=== PATIENT | female | born 1965 | race Caucasian/White ===

== ENCOUNTER → 2017-09-09 | Outpatient (CLI) | payer OTHER | END | disposition home or self-care (01) | LOC: LAB 18:03 | DX: R22.9 Localized swelling, mass and lump, unspecified (principal) | CPT/HCPCS: 87070; 87075; 87077; 87147; 87186; 87205 ==

== ENCOUNTER 2024-05-21 17:11 | Inpatient (IN) | payer OTHER ==
[~2024-05-21] VITALS: Ht 154.9 cm; Wt 68.0 kg
[2024-05-21] MEDS ORDERED: ADTHYZA PO (17:48)
[2024-05-21] MEDS ORDERED: MAGNESIUM OXID500 MG PO (17:49)
[2024-05-21 17:52] LABS: Source, Urine Clean Catch
[2024-05-21 17:59] LABS: Appearance, Urine Clear (Clear); BASOPHILS ABSOLUTE AUTO 0.06 K/mm3 (0.00-0.23); BASOPHILS PERCENT AUTO 1 % (0-2); Bilirubin, Urine Neg (Neg); Blood, Urine 2+ (Neg); Color, Urine Yellow (P-Yellow); EOSINOPHILS ABSOLUTE AUTO 0.05 K/mm3 (0.00-0.68); EOSINOPHILS PERCENT AUTO 0 % (0-6); Glucose Qualitative, Urine Neg (Neg); Hematocrit 39.2 % (33.0-51.0); Hemoglobin 12.9 g/dL (11.5-16.0); IMMATURE GRAN ABSOLUTE AUTO 0.08 K/mm3 (0.00-0.10); IMMATURE GRAN PERCENT AUTO 1 % (0-1); Ketones, Urine Neg (Neg); LYMPHOCYTES PERCENT AUTO 21 % (21-46); Leukocyte Esterase, Urine 3+ (Neg); MONOCYTES ABSOLUTE AUTO 1.02 K/mm3 (0.16-1.47); MONOCYTES PERCENT AUTO 9 % (4-13); Mean Corpuscular HGB 28.9 pg (26.0-34.0); Mean Corpuscular HGB Conc 32.9 g/dL (31.5-36.5); Mean Corpuscular Volume 88 fL (80-100); Mean Platelet Volume 9.8 fL (9.1-12.4); NEUTROPHILS ABSOLUTE AUTO 7.73 K/mm3 (1.96-9.15); NEUTROPHILS PERCENT AUTO 69 % (41-73); Nitrite, Urine Neg (Neg); Platelet Count 281 K/mm3 (150-400); Protein, Urine Neg (Neg); RDW Coefficient Variation 12.8 % (11.7-14.2); RDW Standard Deviation 40.8 fL (35.1-46.3); Red Blood Cell Count 4.47 M/mm3 (3.80-5.20); Urobilinogen, Urine NORM (Normal); White Blood Cell Count 11.24 K/mm3 (4.00-11.30)
[2024-05-21] MEDS ORDERED: NS 1,000 ML IV SCH ×2 (18:10→23:00)
[2024-05-21] MEDS ORDERED: Piperacillin/Tazobactam Sod 4.5 GM in NS 100 ML IV ONE ×2 (18:10→19:35)
[2024-05-21 18:21] LABS: Bacteria Many /hpf; Squamous Epithelial Cells Few /hpf (Few)
[2024-05-21 18:30] LABS: Albumin, Blood 3.3 g/dL (3.4-5.0); Albumin/Globulin Ratio 0.6 (0.8-1.8); Bilirubin, Total 0.3 mg/dL (0.1-1.0); Bun/Creatinine Ratio 17.6 (12.0-20.0); Calcium, Blood 9.2 mg/dL (8.5-10.1); Creatinine, Blood 0.8 mg/dL (0.40-1.00); Globulin, Blood 5.1 g/dL (2.2-4.0); Potassium, Blood 3.7 mmol/L (3.5-5.5); Thyroid Stimulating Hormone 2.32 uIU/mL (0.360-4.800); Total Protein, Blood 8.4 g/dL (6.4-8.2)
[2024-05-21] MEDS ORDERED: Naloxone HCl 0.4MG / ML 1ML Vial IV PRN (19:25)
[2024-05-21] MEDS ORDERED: OxyCODONE HCL 5 MG TAB PO PRN (19:30)
[2024-05-21] MEDS ORDERED: FLU VACC TS2024-25(6MOS UP)/PF 45 MCG/0.5 ML SYRINGE IM ONE (19:30)
[2024-05-21] MEDS ORDERED: Acetaminophen 325 MG TABLET PO PRN (19:30)
[2024-05-21] MEDS ORDERED: Ondansetron HCl 2 MG / ML 2ML Vial IV PRN (19:30)
[2024-05-21] MEDS ORDERED: FentaNYL Citrate 50 MCG/ML 2 ML Injection IV PRN (19:30)
[2024-05-21] MEDS ORDERED: Lactated Ringer's 1,000 ML IV SCH (20:00)
[2024-05-21] MEDS ORDERED: Lactobacil 2-S.Thermo-Bifido 1 1 Cap PO SCH (21:00)
[2024-05-21] MEDS ORDERED: Docusate Sodium 100 MG Cap PO SCH (21:00)
[2024-05-22] VITALS (22 sets, daily range): BP systolic 94–186; BP diastolic 54–97
[2024-05-22] MEDS ORDERED: Piperacillin/Tazobactam Sod 4.5 GM in NS 100 ML IV SCH
[2024-05-22 04:52] LABS: BASOPHILS ABSOLUTE AUTO 0.04 K/mm3 (0.00-0.23); BASOPHILS PERCENT AUTO 0 % (0-2); EOSINOPHILS ABSOLUTE AUTO 0.07 K/mm3 (0.00-0.68); EOSINOPHILS PERCENT AUTO 1 % (0-6); Hematocrit 34.6 % (33.0-51.0); Hemoglobin 11.5 g/dL (11.5-16.0); IMMATURE GRAN ABSOLUTE AUTO 0.05 K/mm3 (0.00-0.10); IMMATURE GRAN PERCENT AUTO 1 % (0-1); LYMPHOCYTES ABSOLUTE AUTO 2.11 K/mm3 (0.84-5.20); LYMPHOCYTES PERCENT AUTO 22 % (21-46); MONOCYTES ABSOLUTE AUTO 0.92 K/mm3 (0.16-1.47); MONOCYTES PERCENT AUTO 10 % (4-13); Mean Corpuscular HGB 28.8 pg (26.0-34.0); Mean Corpuscular HGB Conc 33.2 g/dL (31.5-36.5); Mean Corpuscular Volume 87 fL (80-100); NEUTROPHILS ABSOLUTE AUTO 6.37 K/mm3 (1.96-9.15); NEUTROPHILS PERCENT AUTO 67 % (41-73); Platelet Count 244 K/mm3 (150-400); RDW Coefficient Variation 12.7 % (11.7-14.2); RDW Standard Deviation 40.5 fL (35.1-46.3); White Blood Cell Count 9.56 K/mm3 (4.00-11.30)
[2024-05-22 05:48] LABS: Albumin, Blood 2.7 g/dL (3.4-5.0); Albumin/Globulin Ratio 0.6 (0.8-1.8); Bilirubin, Total 0.5 mg/dL (0.1-1.0); Bun/Creatinine Ratio 12.9 (12.0-20.0); Calcium, Blood 8.5 mg/dL (8.5-10.1); Creatinine, Blood 0.93 mg/dL (0.40-1.00); Globulin, Blood 4.3 g/dL (2.2-4.0); Magnesium, Blood 2.1 mg/dL (1.6-2.4); Potassium, Blood 3.8 mmol/L (3.5-5.5)
[2024-05-22] MEDS ORDERED: Thyroid 60 MG Tab PO SCH (06:00)
--- NOTE | 2024-05-22 07:48 | NUR ---
SHIFT SUMMARY PT ARRIVED TO ROOM 304 VIA WHEELCHAIR AROUND 0100. PT TRANSFERED HERSELF TO THE HOSPITAL BED. PT ORIENTED TO ROOM AND CALL LIGHT. PT IS A&OX4, PLEASANT AND APPRECIATIVE. VSS ON RA, T-MAX WAS 102.3F ORALLY. MEDICATED WITH 650 MG PO TYLENOL, AND PACKED PT WITH ICE PACKS. PT STATES SHE IS MORE HOMEOPATHIC AND DOES NOT LIKE TO TAKE PHARMACEUTICALS. SBA TO BR FOR LINE MANAGEMENT. PT REMAINS NPO FOR SURGERY TODAY. VOIDING LARGE AMOUNTS OF CLEAR, LIGHT YELLOW URINE. NO BM THIS SHIFT. BED IN LOWEST POSITION, CALL LIGHT WITHIN REACH.
[2024-05-22] MEDS ORDERED: Lactated Ringer's 1,000 ML IV SCH (07:55)
--- NOTE | 2024-05-22 08:32 | NUR ---
PT HERE VIA MARTY FROM 304 FOR LAP APPY. Patient confirms NPO status and agrees with scheduled surgery. Pre-Op teaching done. Pt verbalizes understanding. History, Chart, Medications and Allergies reviewed before start of procedure.
[2024-05-22] MEDS ORDERED: Nicotine 14 MG PATCH TOP SCH (09:00)
[2024-05-22] MEDS ORDERED: Midazolam HCl 1MG / ML 2ML Vial ONE (10:05)
[2024-05-22] MEDS ORDERED: FentaNYL Citrate 50 MCG/ML 2 ML Injection ONE (10:05)
[2024-05-22] MEDS ORDERED: propofoL 20 ML IV ONE (10:05)
[2024-05-22] MEDS ORDERED: Bupivacaine 0.5% HCl 5 MG/ML 30MLVIAL ONE (10:36)
--- NOTE | 2024-05-22 10:40 | NUR ---
PT TRANSFERRING TO SURGICAL ROOM 212 POST SURGERY BELONGINGS GATHERED AND TAKEN TO ROOM.. REPORT GIVEN TO KISHORE ON SURGICAL UNIT
[2024-05-22] MEDS ORDERED: Rocuronium Bromide 10 MG/ML 5ML Injection IV ONE (11:01)
[2024-05-22 11:16] LABS: International Normalized Ratio 1.17; Prothrombin Time Results 12.4 Sec (9.7-11.5)
[2024-05-22] MEDS ORDERED: Sugammadex Sodium 200 MG/2ML SDV (100 MG/ML) ONE (12:27)
[2024-05-22] MEDS ORDERED: Dexamethasone Sod Phos 10 MG/ML 1ML VIAL ONE (12:28)
[2024-05-22] MEDS ORDERED: Ondansetron HCl 2 MG / ML 2ML Vial ONE (12:28)
[2024-05-22] MEDS ORDERED: HYDROmorphone HCl/Pf 1MG SYR ONE ×2 (13:01→13:24)
--- NOTE | 2024-05-22 14:45 | NUR ---
PACU TO SURGICAL FLOOR PT ARRIVED FROM PACU AT APPROX 1430 TODAY, A/OX4 WITH VSS. SPO2 ABOVE 93% 0N 2L NC. ABD INCISION SITES X3 CDI, NO DRAINAGE NOTED. ABD SHAWNA DRESSING CDI, DRAINING SS FLUID. PT UP TO BSC WITH 2 PERSON ASSIST. DENIES SOB, CP, N/T, NAUSEA. TOLERATING SIPS OF WATER. FAMILY AT BEDSIDE. HAS CALL LIGHT IN REACH.
--- NOTE | 2024-05-22 17:02 | NUR ---
Patient back from surgery, Reposition, post op vitals begun. Skin check and comfort measures. Post op vitals cont'd. Up to commode n back to bed. Minor output, @ 17oo after broth, hyper emesis 600 Ml out. at bedside.
--- NOTE | 2024-05-22 19:15 | NUR ---
SHIFT SUMMARY POD 0 S/P ROBOTIC APPENDECTOMY. LAP INICISIONS CDI, OPEN TO AIR WITH NO DRAINAGE NOTED. SHAWNA DRAIN DRESSING INTACT WITH 30ML SS FLUID REMOVED; BULB COMPRESSED. TOLERATING SMALL AMOUNTS OF CL. PT DENIES NEED FOR PAIN OR NAUSEA MEDICATION TO THIS RN AND SOFTWARE TESTER. UP TO BSC TO VOID X 2 WITH 1 ASSIST. IVF INFUSING PER ORDERS. REFUSING SCD'S DUE TO DISCOMFORT, PT EDUCATED ON IMPORTANCE. PT ABLE TO REPOSITION SELF IN BED. HAS CALL LIGHT IN REACH. REPORT GIVEN TO NIGHT RN.
--- NOTE | 2024-05-22 19:20 | NUR ---
SHIFT SUMMARY POD 0 S/P R TKA. AQUACEL CDI. POLAR SERENA TO RIGHT HIP IN PLACE. DENIES PAIN, UNABLE TO WIGGLE TOES R/T SPINAL. TOLERATING PO INTAKE. MEDICATED PER EMAR AND ORDERS. AWAITING POST-OP VOID AND AMBULATION. IV SL. REPORT GIVEN TO ON COMING RN.
[2024-05-22] MEDS ORDERED: Ketorolac Tromethamine 15mg Vial IV PRN (23:00)
[2024-05-22] MEDS ORDERED: Phenazopyridine HCl 100 MG Tab PO PRN (23:00)
--- NOTE | 2024-05-23 | NUR ---
ASSUMED CARE OF PT. NO DISTRESS NOTED, PT DENIES NEEDS AT THIS TIME, CALL LIGHT IN REACH.
--- NOTE | 2024-05-23 01:46 | NUR ---
PT LYING ON BACK FACING LEFT SIDE. RESP E/U, NO DISTRESS NOTED.
[2024-05-23 04:44] VITALS: BP 126/82
[2024-05-23 04:45] LABS: Hemoglobin 10.7 g/dL (11.5-16.0); Mean Corpuscular HGB 28.4 pg (26.0-34.0); Mean Corpuscular HGB Conc 32.4 g/dL (31.5-36.5); Mean Corpuscular Volume 88 fL (80-100); Platelet Count 228 K/mm3 (150-400); RDW Coefficient Variation 12.8 % (11.7-14.2); RDW Standard Deviation 41.1 fL (35.1-46.3); Red Blood Cell Count 3.77 M/mm3 (3.80-5.20); White Blood Cell Count 13.51 K/mm3 (4.00-11.30)
[2024-05-23 05:14] LABS: Bun/Creatinine Ratio 17.4 (12.0-20.0); Calcium, Blood 8.6 mg/dL (8.5-10.1); Creatinine, Blood 0.75 mg/dL (0.40-1.00); Potassium, Blood 3.9 mmol/L (3.5-5.5)
[2024-05-23 07:14] VITALS: BP 102/66
--- NOTE | 2024-05-23 08:59 | NUR ---
NURSING SURG DAYSHIFT: Assumed care of pt at approx 0700. A/O, mildly anxious, fairly cooperative w/care. C/O 3/10 abd discomfort w/movement/coughing, treating w/meds as ordered as well as rest/repositioning. Ambulates independently and w/o difficulty. Skin intact, abd lap site x3 appear healthy, SHAWNA drain in place draining serosanguinous fluid. No tele in place, HRR 50-60's, no c/o CP/pressure, BP stable, no noted edema. L/S cta t/o, denies dyspnea, c/o chronic cough producing small amts of thick yellow/wilks sputum. Abd mildly distended, BT+, voiding w/no c/o difficulty/discomfort. PIV x2, NS infusing at 100mls/hr upon initial assessment. No s/s of acute distress this a.m. Pt requires much reassurance in care being provided, eases w/bedside discussion. 2nd liter of NS completed, PIV s/l, abx as scheduled. Denied need for pyridium or nicotine patch this a.m. Discussed increased ambulation which pt is agreeable. Awaiting rounding from PMD, call light in reach, cont to monitor.
[2024-05-23 15:06] VITALS: BP 118/65
--- NOTE | 2024-05-23 17:28 | NUR ---
NURSING SURG DAYSHIFT SUMMARY: Pt has continued to do well t/o shift w/decreased anxiety as independence increased. Seen by surgeon and PMD, new d/o received. Tolerating regular diet w/no N/V. OOB to shower independently and w/o difficulty, SHAWNA drain dressing changed, incision sites remain healthy in appearance. Friend currently at bedside, brought supper for patient, plan to walk halls after evening after abx infusion completes. Pt is anticipating discharge home tomorrow and has had good pain management w/PO medications. No s/s of acute distress at this time, cont to monitor until rpt is given to NOC RN.
--- NOTE | 2024-05-23 22:00 | NUR ---
ASSUMED CARE OF PT.
[2024-05-24 03:57] VITALS: BP 100/52
[2024-05-24] MEDS ORDERED: Acetaminophen/Codeine 300-30 mg PO PRN (05:05)
--- NOTE | 2024-05-24 05:45 | NUR ---
PT TEARFUL,ANXIOUS INTERMITTENTLY.C/O PAIN INITIALLY,BUT REFUSED RITESH ORDERED. LATER C/O PAIN AND REQUESTING CODEINE.PT ALSO REQUESTING MAGNESIUM SHE TAKES THIS AT HOME.HOWEVER,PT REQUESTING MAG LEVEL.I CALLED DR BAILEY AND ORDER WAS RECEIVED.AT THIS TIME,I REVIEWED PT LABS WBC ELEVATED AND CALLED FOR REQUEST OF FOLLOW UP LABS. CBC AND CHEM PROFILE WERE ORDERED. PT WITH FLIGHT OF IDEAS AND FREQUENTLY CHANGES MIND ON HER WANTS.
--- NOTE | 2024-05-24 06:23 | NUR ---
SUMMARY PT REPORTS EFFECTIVE PAIN CONTROL USING TYLENOL/CODEINE.SHAWNA DRAIN HAS BEEN LEAKING SCANT AMNTS,WITH REINFORCED DRESSING,PT REPORTS THIS IS NOT NEW. SHAWNA WITH SERO MICHELA ALVARADO IN BULB,TUBE MILKED X1.
[2024-05-24 06:42] LABS: BASOPHILS ABSOLUTE AUTO 0.04 K/mm3 (0.00-0.23); BASOPHILS PERCENT AUTO 1 % (0-2); EOSINOPHILS ABSOLUTE AUTO 0.14 K/mm3 (0.00-0.68); EOSINOPHILS PERCENT AUTO 2 % (0-6); Hematocrit 30.7 % (33.0-51.0); Hemoglobin 10.1 g/dL (11.5-16.0); IMMATURE GRAN ABSOLUTE AUTO 0.02 K/mm3 (0.00-0.10); IMMATURE GRAN PERCENT AUTO 0 % (0-1); LYMPHOCYTES ABSOLUTE AUTO 1.83 K/mm3 (0.84-5.20); LYMPHOCYTES PERCENT AUTO 26 % (21-46); MONOCYTES ABSOLUTE AUTO 0.47 K/mm3 (0.16-1.47); MONOCYTES PERCENT AUTO 7 % (4-13); Mean Corpuscular HGB 28.9 pg (26.0-34.0); Mean Corpuscular HGB Conc 32.9 g/dL (31.5-36.5); Mean Corpuscular Volume 88 fL (80-100); Mean Platelet Volume 10.3 fL (9.1-12.4); NEUTROPHILS PERCENT AUTO 65 % (41-73); Platelet Count 254 K/mm3 (150-400); RDW Standard Deviation 41.8 fL (35.1-46.3); Red Blood Cell Count 3.49 M/mm3 (3.80-5.20)
[2024-05-24 07:06] LABS: Albumin, Blood 2.4 g/dL (3.4-5.0); Albumin/Globulin Ratio 0.6 (0.8-1.8); Bilirubin, Total 0.3 mg/dL (0.1-1.0); Bun/Creatinine Ratio 18.8 (12.0-20.0); Calcium, Blood 8.7 mg/dL (8.5-10.1); Creatinine, Blood 0.8 mg/dL (0.40-1.00); Globulin, Blood 3.7 g/dL (2.2-4.0); Potassium, Blood 3.9 mmol/L (3.5-5.5); Total Protein, Blood 6.1 g/dL (6.4-8.2)
[2024-05-24 07:22] VITALS: BP 115/71
--- NOTE | 2024-05-24 08:10 | NUR ---
AM ASSESSMENT: Pt laying in bed, wakes to verbal stimulus. LS clear. HR reg. BT hyperactive. X3 abd lap incisions with SHAWNA drain to mid abd. SHAWNA is draining serosanguineous fluid, line was striped. Fluid in line appears more serous. Pt C/O abd pain 3/10 that is sharp, stabbing and moves around. Pt states that she is not yet passing much flatus. Encouraged ambulation and stool softeners to help decrease gas pains. Also has mid-abd soreness. Will treat with Tylenol-3 per orders. Pt seems very anxious and concerned about discharging with SHAWNA drain. Ecouraged patient with her ablitily to provide drain care and education given on drain management. Will continue to reinforce education and eliminate patient concerns. Call light in reach and will continue to monitor.
[2024-05-24] MEDS ORDERED: Magnesium Oxide 400 MG Tab PO SCH (09:00)
[2024-05-24] MEDS ORDERED: CODACE30 PO (09:50)
[2024-05-24] MEDS ORDERED: AMOCLA875 PO (10:06)
[2024-05-24] MEDS ORDERED: MIRALAX17 GM PO (10:31)
--- NOTE | 2024-05-24 12:59 | NUR ---
Discharge: Pt was given verbal and written discharge instructions. Drain management and care was demonstrated with education given. Pt seems more comfortable with discharge plan. IV was discontinued. Cath intact. Rx for tylenol-3 was given to patient and antibiotic was faxed to [facility]. Left via w/c. Stable at time of discharge.
== END 2024-05-24 12:46 | disposition home or self-care (01) | DRG 330 ==
LOC: ER 17:11 → MEDS 19:24 → SURS 19:24 → MEDS 05-22 00:58 → SURS 05-22 09:33
PROVIDERS: Anesthesiology; Emergency Medicine; Internal Medicine; Surgery; ADMIT Student in an Organized Health Care Education/Training Program
PROC: 0W9G40Z Drainage of Peritoneal Cavity with Drainage Device, Percutaneous Endoscopic Approach (ICD-10-PCS; 2024-05-22)
PROC: 0DXU4ZW Transfer Omentum to Abdominal Region, Percutaneous Endoscopic Approach (ICD-10-PCS; 2024-05-22)
PROC: 0DBH4ZZ Excision of Cecum, Percutaneous Endoscopic Approach (ICD-10-PCS; principal; 2024-05-22 10:00)
DX: K35.33 Acute appendicitis with perforation, localized peritonitis, and gangrene, with abscess (principal); E87.1 Hypo-osmolality and hyponatremia; N39.0 Urinary tract infection, site not specified; E03.9 Hypothyroidism, unspecified; F17.210 Nicotine dependence, cigarettes, uncomplicated; Z87.442 Personal history of urinary calculi; Z91.040 Latex allergy status; Z88.8 Allergy status to other drugs, medicaments and biological substances; Z79.890 Hormone replacement therapy; Z71.6 Tobacco abuse counseling
CPT/HCPCS: 36415; 80048; 80053; 81001; 83605; 83735; 84443; 85025; 85027; 85610; 87040; 87086; 88304; 94760; 96365; 99284-25; A9270; J1100; J1171; J1885; J2250; J2405; J2543; J2704; J3010; J7030; J7120

== ENCOUNTER → 2025-05-13 | Outpatient (CLI) | payer OTHER ==
[~2025-05-13] MED LIST: ADTHYZA PO; AMOCLA875 PO; CODACE30 PO; MAGNESIUM OXID500 MG PO; MIRALAX17 GM PO
[2025-05-21 23:13] LABS: CORTISOL,SALIVA 0.103 ug/dL
== END | disposition home or self-care (01) ==
LOC: LAB 18:20 → LAB SHORT 18:20
PROVIDERS: Family Medicine
DX: N95.1 Menopausal and female climacteric states (principal)
CPT/HCPCS: 82533